=== PATIENT | female | born 2000 | race African-American/Black ===

== ENCOUNTER 2021-05-10 18:26 | Emergency (ER) | payer OTHER, SELFPAY ==
--- NOTE | 2021-05-10 18:38 | ED.FEMALEGU ---
HPI - Female Genitourinary General Chief complaint: Urogenital-Female Stated complaint: STD Test Time Seen by Provider: 05/10/21 18:38 Source: patient and RN notes reviewed Mode of arrival: ambulatory Limitations: no limitations History of Present Illness HPI Narrative: 20-year-old female presents to the [facility] with complaints of having her partner tested positive for an STD, unsure which STD it is. States her last normal period was in January 2021. Had a 1 to 2-day period at the beginning of this month. Denies any burning, discharge, open sores. No abdominal pain or chest pain. No shortness of breath. Related Data Home Medications Medication Instructions Recorded Confirmed No Home Medications 05/10/21 05/10/21 Allergies Allergy/AdvReac Type Severity Reaction Status Date / Time No Known Allergies Allergy Verified 05/10/21 18:57 Review of Systems Review of Systems: All systems reviewed & are unremarkable except as noted in HPI and below Constitutional: Constitutional: Reports no additional constitutional complaints Eyes: Eyes: Reports no additional eye complaints ENT: Reports system reviewed and no additional complaints, except as documented Cardiovascular: Cardiovascular: Reports no additional cardiovascular complaints Respiratory: Respiratory: Reports no additional respiratory complaints Gastrointestinal: Gastrointestinal: Reports no additional gastrointestinal complaints Genitourinary: Genitourinary: Reports no additional female genitourinary complaints, Denies abnormal vaginal bleeding, Denies dysuria, Denies pelvic pain, Denies flank pain and Denies vaginal discharge Musculoskeletal: Musculoskeletal: Reports no additional musculoskeletal complaints, Denies back pain and Denies muscle cramps Integumentary/Breasts: Skin/Breast: Reports system reviewed and no additional complaints, except as docu Neurologic: Reports system reviewed and no additional complaints, except as documented Allergic/Immunologic: Allergic/Immunologic: Reports no additional allergic/immunologic complaints PMFSH Comments Denies any past medical or surgical history At the time of my signature, I reviewed and agree with the nursing past medical, surgical, social, and family history. There is no relevant family history pertinent to the patient complaint. Exam Const: General: healthy appearing, no acute distress and alert Nutritional Appearance: well nourished Orientation/consciousness: patient oriented x3 Limitations: no limitations HENMT: Head: normal to inspection Eyes: Pupils: Equal, round and reactive pupils present Neck: Neck: normal visual inspection, no lymphadenopathy and no meningeal signs Chest: Chest palpation & inspection: normal inspection of the chest Resp: Effort & Inspection: normal respiratory effort and no use of accessory muscles Auscultation: clear to auscultation bilaterally, no crackles, no rales, no rhonchi and no wheezes Cardio: Rate: regular rate Rhythm: regular rhythm GI: GI Palp: Yes Soft to palpation and Yes Tenderness to palpation present (GI) : External Female Exam: normal external appearance (With piercings) and No urethral discharge Speculum Exam - Vagina: abnormal vaginal discharge frothy and yellow, vaginal bleeding (Spotting), no swelling and nontender Speculum Exam - Cervix: Cervical os closed, Abnormal cervical discharge present yellow, no masses, nontender and Other cervical findings present (Friable cervix) Bimanual exam- vagina & uterus: normal bimanual exam Other: Chaperoned by Patricia LOU Back/Spine/Pelvis: Back: no CVA tenderness Skin: General skin exam: normal color Rashes: no rashes Neuro: General: patient oriented x3, moves all extremities, no meningeal signs and no focal motor deficits Speech: normal speech Gait exam (Neuro): Normal gait present Extrem: General: normal to inspection and no pedal edema Psych: Appearance: grossly normal and well kempt Mental Statu
[2021-05-10 18:42] VITALS: PULSE 80; RESP 16; TEMP 36.8; O2SAT 99
[2021-05-10] MEDS: LIDOCAINE HCL 1% LOCAL INJ 20 ML VIAL 2.1 ML IM (19:24)
[2021-05-10] MEDS: AZITHROMYCIN 250 MG TABLET 1000 MG PO (19:25)
[2021-05-10] MEDS: cefTRIAXone 1 GM VIAL 0.5 GM IM (19:25)
== END 2021-05-10 19:58 | disposition home or self-care (01) ==
PROVIDERS: Emergency Provider Nurse Practitioner
DX: N89.8 Other specified noninflammatory disorders of vagina (principal); Z71.1 Person with feared health complaint in whom no diagnosis is made
CPT/HCPCS: 81003; 87070; 87077; 87086; 87088; 87186; 87491; 87591; 87661; 96372; 99214; A9270; G0463; J0696